=== PATIENT | male | born 1960 | race Hispanic/Latino ===

== ENCOUNTER 2020-10-13 06:40 | Outpatient (CLI) | payer BC ==
[2020-10-13 19:56] LABS: SARS-CoV-2 MS2 Positive; SARS-CoV-2 N Gene Negative; SARS-CoV-2 S Gene Negative; SARS-CoV-2 by NAA Not Detected (NotDetected); SARS-CoV-2 orf1ab Negative
== END 2020-10-13 06:41 | disposition home or self-care (01) ==
LOC: LABBT 06:40
PROVIDERS: ATTEND Orthopaedic Surgery
DX: Z01.812 Encounter for preprocedural laboratory examination (principal); Z20.828 Contact with and (suspected) exposure to other viral communicable diseases; S82.201D Unspecified fracture of shaft of right tibia, subsequent encounter for closed fracture with routine healing; S72.92XD Unspecified fracture of left femur, subsequent encounter for closed fracture with routine healing
CPT/HCPCS: 87635; U0003

== ENCOUNTER 2020-10-16 05:51 | Inpatient (IN) | payer OTHER ==
[2020-10-15 11:12] VITALS: BMI 29.9
[2020-10-16] MEDS ORDERED: Midazolam HCl 2 mg/2 ml Vial ONE ×2 (06:40→07:41)
[2020-10-16] MEDS ORDERED: Fentanyl 100 MCG/2 ML VIAL ONE ×9 (06:40→14:31)
[2020-10-16] MEDS ORDERED: Lidocaine 1% PF 5 ML VIAL ONE (09:55)
[2020-10-16] MEDS ORDERED: PROPOFOL 200 MG/20 ML VIAL ONE (09:55)
[2020-10-16] MEDS ORDERED: Ondansetron PF 4 MG/2 ML Vial ONE (09:55)
[2020-10-16] MEDS ORDERED: Ketorolac Tromethamine 30 MG/ML VIAL ONE (09:55)
[2020-10-16] MEDS ORDERED: Promethazine HCl 25 MG/ML VIAL SLOW IVP PRN (12:28)
[2020-10-16] MEDS ORDERED: Ondansetron HCl/PF 4 MG/2 ML Vial IVP PRN (12:28)
[2020-10-16] MEDS ORDERED: Promethazine HCl 25 MG/ML VIAL IM PRN ×2 (12:28→13:54)
[2020-10-16] MEDS ORDERED: Ondansetron PF 4 MG/2 ML Vial IVP PRN (13:54)
[2020-10-16] MEDS ORDERED: Bisacodyl 10 MG SUPP PR PRN (13:54)
[2020-10-16] MEDS ORDERED: Milk Of Magnesia 30 ML UDCUP PO PRN (13:54)
[2020-10-16] MEDS ORDERED: Fentanyl 100 MCG/2 ML VIAL SLOW IVP PRN (13:54)
[2020-10-16] MEDS ORDERED: Acetaminophen/Codeine 30-300mg Tablet PO PRN (13:54)
[2020-10-16] MEDS ORDERED: traMADol HCl 50 MG TAB PO PRN ×2 (13:54)
[2020-10-16] MEDS ORDERED: Morphine 2 MG/ML VIAL SLOW IVP PRN (13:54)
[2020-10-16] MEDS ORDERED: Cyclobenzaprine 10 MG TAB PO PRN (13:59)
[2020-10-16] MEDS ORDERED: Communication Order-Pharmacy FS SCH (14:00)
--- NOTE | 2020-10-16 15:01 | RAD ---
XR Femur Lt 2 View STANDARD History: Left femur trochanteric nail Comparison: None. Findings: 4 images from the operating room were obtained. Satisfactory postoperative appearance. Impression: Fluoroscopy for procedure purposes.
--- NOTE | 2020-10-16 15:02 | RAD ---
XR Tib Fib Rt Leg 2 View History: ORIF right tibia Comparison: None. Findings: 2 images from the operating room were obtained. Lateral plate-screw fixation of proximal ti get. Old screw fragment within the possible tibial metaphysis. Impression: Fluoroscopy for procedure purposes.
[2020-10-16] MEDS: CEFAZOLIN 2 GM in Premix Bag 1 BAG IVPB SCH ×2 (16:49→23:46)
[2020-10-16] MEDS: Sodium Chloride 0.9% 100 ML IV SCH ×4 (16:49→21:02)
[2020-10-16] MEDS: Ketorolac Tromethamine 30 MG/ML VIAL IVP SCH ×2 (17:35→23:47)
[2020-10-16] MEDS: Acetaminophen/Codeine 30-300mg Tablet PO PRN ×2 (17:36→21:36)
[2020-10-16] MEDS: Sodium Chloride 0.9% 1,000 ML IV SCH (20:11)
[2020-10-16] MEDS: Aspirin 81 mg Enteric Coated Tablet PO SCH (20:13)
[2020-10-16] MEDS: Atorvastatin Calcium 40 MG TAB PO SCH (20:13)
[2020-10-17] MEDS: Acetaminophen/Codeine 30-300mg Tablet PO PRN ×4 (01:52→20:10)
[2020-10-17] MEDS: Sodium Chloride 0.9% 1,000 ML IV SCH ×2 (05:19→16:08)
[2020-10-17] MEDS: Ketorolac Tromethamine 30 MG/ML VIAL IVP SCH ×3 (05:20→17:28)
[2020-10-17 06:13] LABS: Band 7 % (5-11); Hemoglobin 11.2 g/dL (14.0-18.0); Lymphocytes 19 % (21-51); MDiff Complete? YES; Mean Corpuscular HGB CONC 34.4 g/dL (32.0-36.0); Mean Corpuscular Hemoglobin 33.3 pg (27.0-31.0); Mean Corpuscular Volume 96.7 fL (78.0-98.0); Mean Platelet Volume 7.5 fL (7.4-10.4); Monocytes 10 % (0-10); Neutrophil 60 % (42-75); Platelet Count 115 thou/uL (130-400); Platelet Morphology Comment Appears Decreased; RBC Distribution Width 11.9 % (11.5-14.5); Reactive Lymphocytes 4 % (0-10); Red Blood Cell (RBC) Count 3.36 mill/uL (4.70-6.10); White Blood Cell (WBC) Count 6.3 thou/uL (4.8-10.8)
[2020-10-17] MEDS: Empagliflozin 25 MG TAB PO SCH (08:04)
[2020-10-17] MEDS: Aspirin 81 mg Enteric Coated Tablet PO SCH ×2 (08:05→20:06)
[2020-10-17] MEDS: CEFAZOLIN 2 GM in Premix Bag 1 BAG IVPB SCH ×3 (08:05→23:01)
[2020-10-17] MEDS: Losartan 25 MG TAB PO SCH (08:05)
[2020-10-17] MEDS: Alogliptin 25 MG TAB PO SCH (08:05)
[2020-10-17] MEDS: Atorvastatin Calcium 40 MG TAB PO SCH (20:06)
[2020-10-18] MEDS: Acetaminophen/Codeine 30-300mg Tablet PO PRN ×2 (02:25→07:35)
[2020-10-18] MEDS: Sodium Chloride 0.9% 1,000 ML IV SCH (04:45)
[2020-10-18 07:37] VITALS: BP 136/70; TEMP 98.6
[2020-10-18] MEDS: Aspirin 81 mg Enteric Coated Tablet PO SCH (07:57)
[2020-10-18] MEDS: CEFAZOLIN 2 GM in Premix Bag 1 BAG IVPB SCH (07:57)
[2020-10-18] MEDS: Alogliptin 25 MG TAB PO SCH (07:57)
[2020-10-18] MEDS: Losartan 25 MG TAB PO SCH (07:58)
[2020-10-18] MEDS: Empagliflozin 25 MG TAB PO SCH (07:58)
--- NOTE | 2020-10-19 18:19 | OP ---
DATE OF PROCEDURE: 10/16/2020 PREOPERATIVE DIAGNOSES: 1. Nonunion, left distal femoral shaft. 2. Nonunion, right proximal tibia. POSTOPERATIVE DIAGNOSES: 1. Nonunion, left distal femoral shaft. 2. Nonunion, right proximal tibia. PROCEDURES PERFORMED: 1. Exchanged reamed nailing of left femur with removal of broken hardware. 2. Open reduction and internal fixation, right proximal tibia with lateral plate and bone graft. 3. Reamed, irrigated, aspirated bone graft harvest from right femur, retrograde. 4. Removal of right tibial intramedullary nail. ANESTHESIA: General. LABORATORY SCIENTIST: Lemuel Browne PA-C TOURNIQUET TIME: Approximately 90 minutes at 300 mmHg on the right leg. IMPLANT: 1. Synthes femoral EX nail, 13 x 360 mm with a single distal Crosslock screw. 2. Synthes tibial 4.5 mm proximal lateral plate. COMPLICATIONS: None. DRAINS: None. SPECIMENS: Explanted femoral and tibial nails with screws discarded. OUTCOME: Satisfactory. INDICATIONS: Mr. Rueda is a 60-year-old gentleman, who sustained a work injury many months ago with injuries including an oblique fracture of the right proximal tibia as well as a left distal femoral shaft fracture. These were treated with intramedullary nail stabilization. Unfortunately, he has gone on to nonunion of both fractures. At this time, we are planning to proceed with the reamed exchange nailing for the left femoral fracture and removal of nail and conversion to a 4.5 proximal lateral tibial plate for the right side. Informed consent has been obtained. I believe, all questions have been answered. DESCRIPTION OF PROCEDURE: The patient was brought to the operating room, and a time-out performed followed by induction of general anesthesia. Next, a sterile prep and drape were performed to the left lower extremity. At this point, the fracture and hardware were inspected under C-arm guidance. He was found to have a distal broken Crosslock screw with intact proximal Crosslock screws. This distal screw was then approached with a small incision laterally and medially, and the two ends of the screws were removed with the broken segment removed with a trephine in broken hardware removal set. The remaining three Crosslock screws were removed through small stab wounds without difficulty. Next, a midline anterior knee incision was made. After skin was sharply incised down the midline, dissection was carried down along the medial aspect of the patellar tendon. A portion of the prepatellar fat pad was then excised, and at this point, the divot from the nail insertion could be identified in the articular surface of the distal femur at the notch. A curette was used to remove this tissue revealing the nail. Next, the hardware removal set was used to remove this femoral nail, which did come out rather easily. Next, a ball-tipped guidewire was passed up the shaft of the femur, and then, reaming was started at size 11 and continued up to size 14. Next, a 13 x 360 mm femoral nail was inserted over this ball-tipped guidewire under C-arm guidance. This was then locked in place with a single lock distally. At the completion of this, the knee was thoroughly irrigated with normal saline and then closed in layers with 0 Vicryl for the peritenon, followed by 2-0 Vicryl and lisa for the skin. The proximal thigh incision from Crosslock removal was closed with lisa as were the small medial and lateral skin incisions from the Crosslock screw removal at the knee. Following a dressing that consisted of Xeroform gauze and an Albert wrap dressing as well as Xeroform gauze and tape for the proximal thigh, the prep was broken, and then, attention was placed at the right leg. A sterile prep and drape were performed of the right lower extremity with a tourniquet placed on the thigh. Next, the limb was exsanguinated with Esmarch bandage, tourniquet inflated to 300 mmHg. Next, an incision was made following the lateral crest of the tibia and then extending along the lateral border of the patellar tendon and patella. This incision chosen to allow for both hardware removal of the tibial nail as well as eventual plate placement. Next, the three Crosslock screws proximally were removed, this with C-arm guidance with one of the screws being broken and having to be removed from both ends. Once the proximal screws were removed, the 2 distal screws also removed. The dissection proximally was then carried along the lateral border of the patellar tendon, this was mobilized medially, and then, the nail insertion device was inserted on the proximal end of the nail. This nail was then removed. Using the same midline anterior knee incision, a threaded guidewire was passed from the starting point for the surgery such as the retrograde nail would be done, this was passed up the canal of the femur, checked under AP lateral C-arm images. An opening reamer was then used just to penetrate the distal cortex of the femur and then a SHELLEY reamer measuring 15 mm was passed up the femoral canal in standard fashion collecting bone graft for the proximal tibia. Next, the fracture nonunion was identified. The fibrinous material and scar tissue at the fracture were removed using a combination of rongeur and curette, and then basically, the curette could be passed easily into the canal of the tibia at the nonunion site. Exploiting a small hole anteriorly, a combination of the SHELLEY bone graft as well as some cancellous bone chips was packed into this void and along the cortex of the tibia both medially and laterally. Once fully packed, a 4.5 mm proximal lateral tibial plateau plate was applied. This was held in place with cortical screws distally and locking screws proximally. This achieved a near-anatomic alignment of the proximal tibia with good bone grafting of the nonunion site. Next, this wound was thoroughly irrigated with normal saline and then closed in layers with the fascia of the lateral compartment closed with 0 Vicryl followed by 0 Vicryl for the peritenon of the patellar tendon, 2-0 Vicryl then subcutaneously followed by lisa for the skin. Lisa also used for the distal incisions. With completion of this, Xeroform gauze and Albert wrap dressing applied to the knee. Tourniquet was let down, and then, the patient was transferred to recovery room in stable condition. Job ID: [id number]
== END 2020-10-18 11:15 | disposition home or self-care (01) | DRG 481 ==
LOC: SDC 05:51 → SURG A 13:54
PROVIDERS: ADMIT Orthopaedic Surgery; ATTEND Orthopaedic Surgery
PROC: 0QP904Z Removal of Internal Fixation Device from Left Femoral Shaft, Open Approach (ICD-10-PCS; principal; 2020-10-16)
PROC: 0QH906Z Insertion of Intramedullary Internal Fixation Device into Left Femoral Shaft, Open Approach (ICD-10-PCS; 2020-10-16)
PROC: 0QPG04Z Removal of Internal Fixation Device from Right Tibia, Open Approach (ICD-10-PCS; 2020-10-16)
PROC: 0QSG04Z Reposition Right Tibia with Internal Fixation Device, Open Approach (ICD-10-PCS; 2020-10-16)
PROC: 0QUG07Z Supplement Right Tibia with Autologous Tissue Substitute, Open Approach (ICD-10-PCS; 2020-10-16)
PROC: 0QDB0ZZ Extraction of Right Lower Femur, Open Approach (ICD-10-PCS; 2020-10-16)
DX: S82.231K Displaced oblique fracture of shaft of right tibia, subsequent encounter for closed fracture with nonunion (principal); T84.115A Breakdown (mechanical) of internal fixation device of left femur, initial encounter; S72.33 Oblique fracture of shaft of femur; I10 Essential (primary) hypertension; E11.9 Type 2 diabetes mellitus without complications; Z79.84 Long term (current) use of oral hypoglycemic drugs; Z79.899 Other long term (current) drug therapy; Z90.49 Acquired absence of other specified parts of digestive tract; Y83.9 Surgical procedure, unspecified as the cause of abnormal reaction of the patient, or of later complication, without mention of misadventure at the time of the procedure
CPT/HCPCS: 36415; 36416; 76000; 85025; 93005; 93010; C1713; J0690; J1885; J2250; J2405; J2704; J3010

== ENCOUNTER 2022-12-20 16:42 | Observation (INO) | payer BC, MEDICARE, SELFPAY ==
[2022-12-20 17:09] LABS: #Eosinphils 0.1 thou/uL (0.0-0.7); #Lymphocytes 1.6 thou/uL (1.20-3.40); #Monocytes 0.6 thou/uL (0.11-0.59); %Basophils 0.5 % (0.0-1.0); %Eosinophils 1.7 % (0.0-10.0); %Lymphocytes 24.8 % (21.0-51.0); %Monocytes 9.4 % (0.0-10.0); %Neutrophils 63.6 % (42.0-75.0); Hemoglobin 17.3 g/dL (14.0-18.0); Mean Corpuscular HGB CONC 35.1 g/dL (32.0-36.0); Mean Corpuscular Hemoglobin 33.9 pg (27.0-31.0); Mean Corpuscular Volume 96.5 fl (78.0-98.0); Mean Platelet Volume 8.4 fL (7.4-10.4); Platelet Count 143 10x3/uL (130-400); RBC Distribution Width 11.4 % (11.5-14.5); Red Blood Cell (RBC) Count 5.11 mill/uL (4.70-6.10); White Blood Cell (WBC) Count 6.2 10x3/uL (4.8-10.8)
[2022-12-20 17:19] LABS: Prothrombin Time 12.4 sec (12.0-14.7)
[2022-12-20 17:20] LABS: INR-International Normal Ratio 0.9
[2022-12-20 17:28] LABS: ALT (SGPT) 33 U/L (8-55); AST (SGOT) 20 U/L (5-34); Albumin 4.3 g/dL (3.4-4.8); Alkaline Phosphatase 74 U/L (40-110); Anion Gap 11 mmol/L (10-20); BUN (Urea Nitrogen) 12 mg/dL (8.4-25.7); Bilirubin, Total 0.7 mg/dL (0.2-1.2); Calc. Creatinine Clearance 0 mL/min (70-130); Calcium 9.1 mg/dL (7.8-10.44); Carbon Dioxide 25 mmol/L (23-31); Chloride 104 mmol/L (98-107); Estimated GFR 98; Globulin 2.9 g/dL (2.4-3.5); Glucose 223 mg/dL (80-115); Potassium 4.1 mmol/L (3.5-5.1); Protein, Total 7.2 g/dL (5.8-8.1); Sodium 136 mmol/L (136-145)
[2022-12-20] MEDS ORDERED: diphenhydrAMINE 50 MG/ML VIAL ONE (18:42)
[2022-12-20] MEDS ORDERED: Metoclopramide HCl 10 MG/2 ML VIAL ONE (18:42)
[2022-12-20] MEDS ORDERED: Aspirin Chewable 81 MG TAB ONE (19:17)
[2022-12-20] MEDS ORDERED: Acetaminophen 325 MG TAB PO PRN (19:49)
[2022-12-20] MEDS ORDERED: Ondansetron ODT 4 MG TAB PO PRN (19:49)
[2022-12-20] MEDS ORDERED: Senokot S 8.6-50 MG TAB PO PRN (19:49)
[2022-12-20] MEDS ORDERED: Atorvastatin Calcium 40 MG TAB PO SCH (21:00)
[2022-12-20] MEDS ORDERED: predniSONE 20 MG TAB ONE ×3 (22:40)
[2022-12-20] MEDS: Famotidine 20 MG TAB PO SCH (23:57)
[2022-12-21 00:41] VITALS: BMI 29.8
[2022-12-21] MEDS ORDERED: Ketorolac Tromethamine 30 MG/ML VIAL IVP SCH (05:15)
[2022-12-21 05:43] LABS: #Lymphocytes 0.5 thou/uL (1.20-3.40); #Monocytes 0.1 thou/uL (0.11-0.59); #Neutrophils 5.8 thou/uL (1.40-6.50); %Basophils 0.4 % (0.0-1.0); %Eosinophils 0.1 % (0.0-10.0); %Lymphocytes 7.8 % (21.0-51.0); %Monocytes 2.1 % (0.0-10.0); %Neutrophils 89.7 % (42.0-75.0); Hemoglobin 16.9 g/dL (14.0-18.0); Mean Corpuscular HGB CONC 34.5 g/dL (32.0-36.0); Mean Corpuscular Hemoglobin 33.5 pg (27.0-31.0); Mean Corpuscular Volume 97.1 fl (78.0-98.0); Mean Platelet Volume 8.5 fL (7.4-10.4); Platelet Count 141 10x3/uL (130-400); RBC Distribution Width 11.5 % (11.5-14.5); Red Blood Cell (RBC) Count 5.04 mill/uL (4.70-6.10); White Blood Cell (WBC) Count 6.5 10x3/uL (4.8-10.8)
[2022-12-21 06:07] LABS: Anion Gap 13 mmol/L (10-20); BUN (Urea Nitrogen) 12 mg/dL (8.4-25.7); Calc. Creatinine Clearance 104 mL/min (70-130); Calcium 9.3 mg/dL (7.8-10.44); Carbon Dioxide 20 mmol/L (23-31); Cardiac Risk 3.5 (Less than 4.5); Chloride 105 mmol/L (98-107); Cholesterol 143 mg/dl (< 200 Desired); Estimated GFR 98; Glucose 278 mg/dL (80-115); HDL Cholesterol 41 mg/dL (>60 Neg Risk); LDL Cholesterol, Calculated 87 mg/dL; Potassium 4.2 mmol/L (3.5-5.1); Sodium 134 mmol/L (136-145); Triglycerides 77 mg/dL (Less than 150)
[2022-12-21 07:14] LABS: Hemoglobin A1c 7.8 % (4.0-6.0)
[2022-12-21] MEDS ORDERED: predniSONE 50 MG TAB PO SCH (08:00)
[2022-12-21] MEDS: Famotidine 20 MG TAB PO SCH (08:38)
[2022-12-21] MEDS ORDERED: Losartan 25 MG TAB PO SCH (09:00)
[2022-12-21] MEDS ORDERED: Alogliptin 25 MG TAB PO SCH (09:00)
[2022-12-21] MEDS ORDERED: Aspirin 81 mg Enteric Coated Tablet PO SCH (09:00)
[2022-12-21] MEDS ORDERED: Dextrose 50% Abboject 50 ML SYRINGE SLOW IVP PRN (13:18)
[2022-12-21] MEDS ORDERED: Dextrose 5% in Water 1,000 ML IV PRN (13:18)
[2022-12-21] MEDS ORDERED: HumaLOG 300 UNITS/3 ML VIAL SC PRN ×2 (13:18)
[2022-12-21 15:48] VITALS: BP 164/85; TEMP 98.2
== END 2022-12-21 17:06 | disposition home or self-care (01) ==
LOC: ERS 16:42 → NEURO 19:30
PROVIDERS: ADMIT Internal Medicine; ATTEND Internal Medicine
DX: G51.0 Bell's palsy (principal); I10 Essential (primary) hypertension; E11.9 Type 2 diabetes mellitus without complications; E78.5 Hyperlipidemia, unspecified; N40.0 Benign prostatic hyperplasia without lower urinary tract symptoms; Z79.84 Long term (current) use of oral hypoglycemic drugs; Z79.899 Other long term (current) drug therapy; Z20.822 Contact with and (suspected) exposure to COVID-19
CPT/HCPCS: 70450; 70496; 70498; 70551; 71045; 80048; 80053; 80061; 82962 ×2; 83036; 84484; 85025 ×2; 85610; 85730; 93005; 96365; 96375 ×2; 99285; G0378 ×3; U0003; U0005; 36415; 36416; J1200; J1885; J2765; J7512